=== PATIENT | male | born 1990 | race Caucasian/White ===

== ENCOUNTER 2024-03-16 08:39 | Outpatient (CLI) | payer OTHER, SELFPAY ==
--- NOTE | 2024-03-16 08:47 | MR_ITS ---
WS: [id number] MRI BRAIN WITHOUT CONTRAST HISTORY: CHRONIC MIGRAINE COMPARISON: None available. TECHNIQUE: Diffusion imaging, multiplanar T1, T2 and FLAIR imaging obtained. No evidence for acute infarct or hemorrhage. Duron-white matter differentiation is normal. No remote or acute infarcts are volume loss. Ventricles and extra-axial spaces are normal. No inferior displacement of cerebellar tonsils. The sella turcica and pituitary gland are unremarkabl e. Dural venous sinuses and eek of Cabrera demonstrate no abnormality on this unenhanced studies. Paranasal sinuses: Mucoperiosteal thickening ethmoid and sphenoid sinuses. Moderate mucoperiosteal th ickening in the maxillary sinuses. No air-fluid levels. Mastoid air cells: Normal. Calvarium and scalp: Intact. MR/MR head wo con* [id number] IMPRESSION: 1. No acute infarct. No prior infarct. 2. Mild mucoperiosteal thickening in the paranasal sinuses. 3. Normal hippocampal formations. 4. Normal ventricles.
== END 2024-03-16 08:40 | disposition home or self-care (01) ==
LOC: RAD 08:43
PROVIDERS: PCP Nurse Practitioner; Visit Provider Nurse Practitioner
DX: J32.0 Chronic maxillary sinusitis (principal)
CPT/HCPCS: 70551

== ENCOUNTER 2025-03-02 08:24 | Outpatient (CLI) | payer OTHER, SELFPAY ==
--- NOTE | 2025-03-02 08:30 | US_ITS ---
WS: [id number] RIGHT UPPER QUADRANT ULTRASOUND HISTORY: ELEVATED LIVER U/S COMPARISON: None available. Liver: 18.0 cm in length. Normal size liver and echogenicity. No bile duct dilatation or mass. Portal Vein: Normal hepatopetal flow with monophasic waveform. Gallbladder: Normally distended gallbladder with no stones or wall thickening. CBD: 0.4 cm Pancreas: Portions of the head and tail are obscured. The body is negative. Right kidney: 11.5 cm in length. Normal size and echogenicity. No hydronephrosis or mass. Aorta and IVC: Unremarkable abdominal aorta and IVC. No ascites. US/US abdomen limited [id number] IMPRESSION: Normal right upper quadrant ultrasound.
== END 2025-03-02 08:25 | disposition home or self-care (01) ==
LOC: RAD 08:26
PROVIDERS: PCP Nurse Practitioner; Visit Provider Nurse Practitioner
DX: Z01.89 Encounter for other specified special examinations (principal)
CPT/HCPCS: 76705

== ENCOUNTER 2025-03-02 09:45 | Emergency (ER) | payer OTHER, SELFPAY ==
[2025-03-02 09:47] VITALS: BP 165/120; PULSE 68; TEMP 36.8; O2SAT 99; BMI 31.3
--- NOTE | 2025-03-02 09:57 | ECG_ITS ---
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 Measurements Intervals [place] Rate: 100 P: 57 MI: 166 QRS: 4 QRSD: 101 T: 34 QT: 318 QTc: 410 Interpretive Statements SINUS TACHYCARDIA WITH OCCASIONAL SUPRAVENTRICULAR PREMATURE COMPLEXES POSSIBLE ANTERIOR MYOCARDIAL INFARCTION , OF INDETERMINATE AGE [30 ms Q WAVE IN V3/V4, OR R < 0.2 mV IN V4] INTERPRETATION BASED ON A DEFAULT AGE OF 40 YEARS No previous ECG available for comparison Electronically Signed On 03-02-2025 23:50:14 CDT by Valeria Ag M.D. [id number]
--- NOTE | 2025-03-02 09:57 | XR_ITS ---
WS: [id number] Portable AP upright chest, 03/02/2025 Clinical Data: chest pain Comparison: None. Findings: No nodules, masses or effusions are seen. The heart is normal. The pulmonary vascularity is not increased. No pneumonia or pneumothorax is seen. XR/XR chest 1V portable [id number] Impression: Negative chest.
--- OUTSIDE RECORDS SUMMARY | 2025-03-02 10:06 | XMS_ITS | Clinical Summary ---
Author Organization [facility] Administrative Offices Address [address] [place] [address] Care Team Providers Care Senior Digital Designer Name Role Phone Unavailable Primary Care Provider Unavailabl e Allergies Active Allergy Reactions Criticality Noted Date Comments Venlafaxine Other (See Comments) 07/15/2020 Disturbance in speech Medications dicyclomine (BENTYL) 10 mg capsule Take 10 mg by mouth. 4 Active montelukast (SINGULAIR) 10 mg tablet Take 10 mg by mouth. 4 Active celecoxib (CeleBREX) 100 mg capsule Take 100 mg by mouth. 4 Active omeprazole (PriLOSEC) 40 mg Capsule, Delayed Release(E.C.) Take 40 mg by mouth. 4 Active SUMAtriptan (IMITREX) 100 mg tablet Take 100 mg by mouth see administration instructions. may repeat in 2 hours; max dose 200mg in 24 hours Active amitriptyline (ELAVIL) 25 mg tablet Take 1 Tablet (25 mg) by mouth daily at bedtime. 30 Tablet 3 5 Active Active Problems No known active problems Encounters Date Type Department Care Team Description 01/13/2025 External Device Data ST[facility] ABSTRACTION Provider, Abstract from Last 3 Months Family History Medical History Relation Name Comments No Known Problems Father Cancer Mother Other Sister Relation Name Status Comments Father Mother Sister Social History Tobacco Use Types Packs/Day Years Used Date Smoking Tobacco: Never Tobacco Cessation:Counseling Given: Not Answered Alcohol Use Standard Drinks/Week Comments Not Currently 0 (1 standard drink = 0.6 oz pur e alcohol) Sex and Gender Information Value Date Recorded Sex Assigned at Not on file 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 Gender Identity Not on file Sexual Orientation Not on file Last Filed Vital Signs Vital Sign Reading Time Taken Comments Blood Pressure 124/68 10/28/2024 8:11 AM CDT Pulse 80 10/28/2024 8:11 AM CDT Temperature - - Respiratory Rate 16 10/28/2024 8:11 AM CDT Oxygen Saturation 97% 10/28/2024 8:11 AM CDT Inhaled Oxygen Concentration - - Weight 96.9 kg (213 lb 9.6 oz) 10/28/2024 8:11 A M CDT Height 182.9 cm (6') 10/28/2024 8:11 AM CDT Body Mass Index 28.97 10/28/2024 8:11 AM CDT Plan of Treatment Health Maintenance Due Date Last Done Comments HPV VACCINES (1 - 3-dose SCD M series) 2017 INFLUENZA VACCINE (#1) 2024 6, 03/08/2015, 03/16/2014, Additional history exists DTAP/TDAP/TD VACCINES (3 - T d or Tdap) 01/20/2034 01/21/2024, 08/24/2011, 08/23/2011 HEPATITIS B VACCINES Completed 05/01/2012, 09/24/2011, 08/27/2011 Insurance * Guarantor: [facility] R (C) Account Type Relation to Patient Date of Phone Billing Address Corporate Other DEFAULT ADDRESS [address] [place]
[2025-03-02 10:29] VITALS: BP 147/97; PULSE 84; RESP 16; O2SAT 100
[2025-03-02 10:30] LABS: Hematocrit 53.5 % (37-53); Hemoglobin 18.50 g/dL (11.27-16.99); Mean Corpuscular HGB Conc 34.6 g/dL (30-55); Mean Corpuscular Hemoglobin 29.6 pg (27-33); Mean Corpuscular Volume 85.7 fl (82-101); Nucleated Red Blood Cells % 0 %; Platelet Count 320 10^3/cmm (157-399); Red Blood Count 6.24 10^6/uL (3.85-5.65); White Blood Count 6.87 10^3/uL (3.29-11.43)
[2025-03-02 10:47] LABS: Troponin(5th) Baseline < 6 ng/L (0-15)
[2025-03-02 10:54] LABS: Alanine Aminotransferase 52 U/L (0-41); Albumin Level 5.0 g/dL (3.5-5.2); Alkaline Phosphatase 79 U/L (40-130); Anion Gap 16.4 (5-19); Aspartate Amino Transferase 22 U/L (0-40); Blood Urea Nitrogen 19 mg/dL (6-20); Calcium 9.7 mg/dL (8.5-10.5); Carbon Dioxide 25 mmol/L (22-29); Chloride 104 mmol/L (98-107); Creatinine Clr Calc Pharmacy 118.4095; Globulin 2.7 g/dL (1.3-4.6); Glucose 97 mg/dL (65-115); Osmolality Calculated 294 mOsm/kg (285-295); Potassium 4.4 mmol/L (3.5-5.1); Sodium 141 mmol/L (136-145); Thyroid Stimulating Hormone 2.61 uIU/mL (0.27-4.20); Total Protein 7.7 g/dL (6.6-8.7)
--- NOTE | 2025-03-02 11:23 | ED_ITS ---
HPI - Arrhythmia/Palpitations 2 General: Chief Complaint: Arrhythmia/Palpitations Stated Complaint: chest pain and high heart rate Time Seen by Provider: 03/02/25 10:22 History of Present Illness: 34-year-old male presents emergency room complaining of chest discomfort and palpitations. He recently stopped drinking drinking about 4 tall boys and about every other day. Several times a week he said he would have some binge drinking. He stopped drinking a couple weeks ago and he has been exercising more regularly. He does not use large amounts of energy drinks or caffeine. He has had some what he describes as cold sweats and stopped drinking no tremors or seizure. He has no history of any arrhythmias no family history of heart disease he does not smoke does not use any other drugs. Related Data Allergies Allergy/AdvReac Type Severity Reaction Status Date / Time No Known Allergies Allergy Verified 03/02/25 09:55 Review of Systems 2 Const: Denies: fever(s) or chills Card: Reports: palpitations and irregular heart rhythm; Denies: chest pain, edema, swelling of feet/ankles, dyspnea on exertion or orthopnea Resp: Denies: dyspnea GI: Denies: abdominal pain : Denies: dysuria, urinary frequency or urinary urgency Musc: Denies: neck pain or back pain Skin/Breast: Denies: rash Physical Exam 2 Const: COMMON NORMALS: no acute distress GENERAL APPEARANCE: cooperative and comfortable ORIENTATION/CONSCIOUSNESS: Yes awake, Yes oriented to person, Yes oriented to place and Yes oriented to time HENMT: COMMON NORMALS: normocephalic, atraumatic and hearing grossly normal bilaterally HEAD & SCALP: normocephalic and atraumatic Resp: COMMON NORMALS: normal respiratory effort, No retractions, No use of accessory muscles and clear to auscultation bilaterally AUSCULTATION: clear to auscultation bilaterally Cardio: COMMON NORMALS: regular rate and No murmurs present (Cardio) RATE: regular rate RHYTHM: abnormal rhythm with ectopic beats GI: COMMON NORMALS: Soft to palpation and No hepatosplenomegaly present A USCULTATION: Yes normoactive bowel sounds PALPATION: Yes Soft to palpation, No Tenderness to palpation present (GI), No Guarding due to palpation present (GI) and Yes No hepatosplenomegaly present Extremity: COMMON NORMALS: normal to inspection, capillary refill normal, no clubbing, cyanosis or edema, no calf tenderness and no pedal edema Neuro: SENSORIUM/ORIENTATION: Yes oriented to person, Yes oriented to place and Yes oriented to time Skin: COMMON NORMALS: no rashes or lesions noted GENERAL SKIN EXAM: no rashes or lesions noted Course 2 Vital Signs: Vital signs: Vital Signs Temperature 98.3 F 03/02/25 09:47 Pulse Rate 80 03/02/25 12:54 Respiratory Rate 16 03/02/25 12:54 Blood Pressure 113/92 03/02/25 12:54 Pulse Oximetry 100 03/02/25 12:54 Oxygen Delivery Me thod Room Air 03/02/25 09:47 MDM - Arrhythmia/Palpitations Medical Decision Making Patient having multiple PVCs and palpitations blood pressure well-controlled at this time reviewed findings with him cardiac enzymes unremarkable TSH normal EKG shows PVCs but otherwise negative chest x-ray unremarkable we discussed possibly treating with low-dose beta-raghav but in the course of discussion with potential side effects patient prefers not to. Will set him up for 72-hour Holter monitor and follow-up with his primary care doctor. Other considerations include arrhythmias such as SVT or A-fib no sign of the seen at the time in the emergency room further evaluation by 72-hour Holter and follow-up with primary care. No evidence of acute coronary syndrome. Medical Records I reviewed the patient's medical records. Lab Data I reviewed the patient's lab results. 03/02/25 10:21 03/02/25 10:21 Radiology Impressions Chest X-Ray 03/02/25 09:57 Impression: Negative chest. Laboratory Results WBC 6.87 10^3/uL (3.29-11.43) 03/02/25 10:21 RBC 6.24 10^6/uL (3.85-5.65) H 03/02/25 10:21 Hgb 18.50 g/dL (11.27-16.99) H 03/02/25 10:21 Hct 53.5 % (37-53) H 03/02/25 10:21 MCV 85.7 fl (82-101) 03/02/25 10:21 MCH 29.6 pg (27-33) 03/02/25 10:21 MCHC 34.6 g/dL (30-55) 03/02/25 10:21 RDW 12.2 % (12.1-15.1) 03/02/25 10:21 Plt Count 320 10^3/cmm (157-399) 03/02/25 10:21 MPV 10.3 fL (7.4-10.4) 03/02/25 10:21 Neut % (Auto) 51.7 % 03/02/25 10:21 Lymph % (Auto) 34.1 % 03/02/25 10:21 [facility] [place] % (Auto) 8.2 % 03/02/25 10:21 Eos % (Auto) 5.1 % 03/02/25 10:21 Baso % (Auto) 0.3 % 03/02/25 10:21 Neut # (Auto) 3.56 10^3/uL (1.8-7.7) 03/02/25 10:21 Lymph # (Auto) 2.3 10^3/uL (0.8-4.8) 03/02/25 10:21 [facility] [place] # (Auto) 0.6 10^3/uL (0.2-0.9) 03/02/25 10:21 Eos # (Auto) 0.4 10^3/uL (0.0-0.8) 03/02/25 10:21 Baso # (Auto) 0.0 10^3/uL (0.0-0.1) 03/02/25 10:21 Nucleated RBC % (auto) 0 % 03/02/25 10:21 Nucleated RBCs # 0.0 /100WBC 03/02/25 10:21 Sodium 141 mmol/L (136-145) 03/02/25 10:21 Potassium 4.4 mmol/L (3.5-5.1) 03/02/25 10:21 Chloride 104 mmol/L (98-107) 03/02/25 10:21 Carbon Dioxide 25 mmol/L (22-29) 03/02/25 10:21 Anion Gap 16.4 (5-19) 03/02/25 10:21 BUN 19 mg/dL (6-20) 03/02/25 10:21 Creatinine 1.1 mg/dL (0.7-1.2) 03/02/25 10:21 GFR Calculation 76.6 mL/min (90-130) L 03/02/25 10:21 Glucose 97 mg/dL (65-115) 03/02/25 10:21 Calculated Osmolality 294 mOsm/kg (285-295) 03/02/25 10:21 Calcium 9.7 mg/dL (8.5-10.5) 03/02/25 10:21 Total Bilirubin 0.7 mg/dL (0.15-1.2) 03/02/25 10:21 AST 22 U/L (0-40) 03/02/25 10:21 ALT 52 U/L (0-41) H 03/02/25 10:21 Alkaline Phosphatase 79 U/L (40-130) 03/02/25 10:21 Troponin T Baseline < 6 ng/L (0-15) 03/02/25 10:21 Troponin T 120 Minute < 6.0 ng/L (0-15) 03/02/25 12:06 Delta Troponin T 0 ABS# (0-10) 03/02/25 12:06 Total Protein 7.7 g/dL (6.6-8.7) 03/02/25 10:21 Albumin 5.0 g/dL (3.5-5.2) 03/02/25 10:21 Globulin 2.7 g/dL (1.3-4.6) 03/02/25 10:21 TSH 2.61 uIU/mL (0.27-4.20) 03/02/25 10:21 All radiology interpretation(s) finalized by discharge EKG Data EKG 1: Interpretation: EKG 03/02/2025 9:50 AM sinus tachycardia with occasional PVCs sinus pauses. No acute ST changes noted rate 100 ND interval 166 QTc 410 no previous EKGs for comparison Other EKG comments: Chest X-Ray 03/02/25 09:57 Impression: Negative chest. EKG 2: Interpretation: EKG 03/02/2025 11:40 AM sinus rhythm rate of 78 frequent PVCs ND interval 179 QTc [address] changes noted no significant change from previous EKG done earlier same day Other EKG comments: Chest X-Ray 03/02/25 09:57 Impression: Negative chest. Discharge Plan Discharge Patient Disposition: Home Clinical Impression: Frequent PVCs Condition: Stable Discharge Orders: Discharge ED (Routine); Ordered 03/02/25 Ordered By: Jeff Orona Referrals: Ashley Hughes FNP [Primary Care Provider, Nurse Practitioner] Discharge Diet: Usual diet Discharge Activity: Resume usual activity Patient Instructions: Opioid Safety, Pain Management, Patient Portal & Adam Instructions Activity Restrictions/Additional Instructions: [facility]. It is very important that you follow up as instructed or that you return to the Emergency Department should you have concerns or if your condition changes or worsens in any way. Emergency department visits are focused on emergent conditions, in some cases you may require further evaluation on an outpatient basis. You are seen emergency room with complaints of palpitations. You did have very frequent PVCs that we noted on the monitor your lab work is otherwise unremarkable. Will set you up for an outpatient Holter monitor to evaluate for any other rhythm abnormalities. PVCs are known as paroxysmal ventricular contractions they are generally benign. Your blood pressure was well-maintained while you are here there is no intervention required for these. Follow-up with your primary care doctor with the results of your Holter monitor. fixed income portfolio manager will make arrangements for the Holter monitor and they will call you with the time for it. (Please note that included in your discharge packet is information concerning opioid safety and pain management. This information is given to all patients were discharged from the ER regardless of their discharge diagnosis or the medicines they usually take or are prescribed.) Print Language: Sinhala Coding Level of Care Code ED Speech Language Pathologist Prn for Franklyn Velazco
[2025-03-02 11:35] VITALS: BP 121/92; PULSE 75; RESP 16; O2SAT 99
--- NOTE | 2025-03-02 11:40 | ECG_ITS ---
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 Measurements Intervals [place] Rate: 78 P: 29 PA: 179 QRS: 7 QRSD: 102 T: 29 QT: 355 QTc: 406 Interpretive Statements SINUS RHYTHM WITH FREQUENT VENTRICULAR PREMATURE COMPLEXES WITH OCCASIONAL SUPRAVENTRICULAR PREMATURE COMPLEXES POSSIBLE ANTERIOR MYOCARDIAL INFARCTION , OF INDETERMINATE AGE [30 ms Q WAVE IN V3/V4, OR R < 0.2 mV IN V4] No previous ECG available for comparison Electronically Signed On 03-02-2025 23:55:03 CDT by Valeria Ag M.D. [email or web address]
[2025-03-02 12:13] VITALS: BP 131/93; PULSE 88; RESP 16; O2SAT 99
[2025-03-02 12:39] LABS: Troponin 5 2HR < 6.0 ng/L (0-15); Troponin 5 2HR Delta 0 ABS# (0-10)
[2025-03-02 12:47] VITALS: BP 113/92; PULSE 79; RESP 16; O2SAT 100
[2025-03-02 12:54] VITALS: BP 113/92; PULSE 80; RESP 16; O2SAT 100
== END 2025-03-02 12:55 | disposition home or self-care (01) ==
PROVIDERS: Physician Assistant; Emergency Provider Family Medicine; PCP Nurse Practitioner
DX: I49.3 Ventricular premature depolarization (principal)
CPT/HCPCS: 36415; 71045; 80053; 84443; 84484; 85025; 93005; 99285

== ENCOUNTER → 2025-03-11 08:04 | Outpatient (BNVA) | payer OTHER, SELFPAY | PROVIDERS: PCP Nurse Practitioner; Visit Provider Nurse Practitioner Family | DX: C44.629 Squamous cell carcinoma of skin of left upper limb, including shoulder (principal); L57.0 Actinic keratosis | CPT/HCPCS: 11102; 99203 ==